=== PATIENT | female | born 1995 | race African-American/Black ===

== ENCOUNTER 2017-05-07 10:20 | Emergency (ER) | payer SELFPAY ==
[~2017-05-07] VITALS: Ht 175.3 cm; Wt 104.5 kg
[2017-05-07 10:28] VITALS: BP 122/88; TEMP 98.3
[2017-05-07] MEDS ORDERED: SE TAN PLUS PO (10:33)
[2017-05-07 12:32] LABS: BASO % 0.4 % (0.0-2.0); EOS # 0.4 (0.0-0.7); EOS % 4.9 % (0-4.0); GRAN # 5.6 (1.4-6.5); GRAN % 63.3 % (42.2-75.2); LYMPH # 2.1 (1.2-3.4); LYMPH % 23.9 % (20.0-51.0); MEAN CELL VOLUME 87 fl (80.0-95.0); MEAN CORPUSCULAR HEMOGLOBIN 29 pg (26.0-32.0); MEAN CORPUSCULAR HGB CONC 33 g/dl (33.0-37.0); MONO # 0.7 (0.1-0.6); MONO % 7.4 % (1.7-9.3); PLATELET COUNT 307 K/mm3 (130-400); RED BLOOD COUNT 4.14 M/mm3 (4.10-5.30); REDCELL DISTRIBUTION WIDTH-CV 14.7 % (11.5-14.5)
[2017-05-07 12:39] LABS: HEMATOCRIT 36.2 % (35.0-45.0)
[2017-05-07 12:46] LABS: ALBUMIN 4.4 gm/dL (3.5-5.0); BILIRUBIN,TOTAL 0.4 mg/dL (0.0-1.0); C-REACTIVE PROTEIN 0.8 mg/dL (0.0-0.9); CALCIUM 9.2 mg/dL (8.4-10.2); CREATININE, serum 0.6 mg/dL (0.52-1.25); POTASSIUM 4.3 mmol/L (3.4-5.0); TOTAL PROTEIN 8.2 gm/dL (6.4-8.2)
[2017-05-07 13:00] LABS: COLLECTION METHOD CLEAN CATCH
[2017-05-07 13:05] LABS: MUCOUS Present /lpf; PH 7 (5-8); URINE APPEARANCE Clear; URINE BACTERIA Rare /hpf; URINE BILIRUBIN Negative (NEGATIVE); URINE BLOOD Negative (NEGATIVE); URINE COLOR Yellow; URINE GLUCOSE Negative (NEGATIVE); URINE KETONE Negative (NEGATIVE); URINE LEUKOCYTE ESTERASE 2+ (NEGATIVE); URINE NITRATE Negative (NEGATIVE); URINE PROTEIN(semi-quant) Negative (NEGATIVE); URINE RBC 0-2 /hpf; URINE UROBILINOGEN Negative (NEGATIVE)
[2017-05-07] MEDS ORDERED: FLAGYL500 MG PO (15:12)
[2017-05-07 15:27] VITALS: PULSE 91
== END 2017-05-07 15:28 | disposition home or self-care (01) ==
LOC: COL.ER 10:20
PROVIDERS: Nurse Practitioner
DX: O26.891 Other specified pregnancy related conditions, first trimester (principal); R10.30 Lower abdominal pain, unspecified; Z88.6 Allergy status to analgesic agent; Z3A.12 12 weeks gestation of pregnancy

== ENCOUNTER 2017-05-20 21:11 | Emergency (ER) | payer BC ==
[~2017-05-20] VITALS: Ht 175.3 cm; Wt 104.5 kg
[~2017-05-20 21:11] MED LIST: FLAGYL500 MG PO; SE TAN PLUS PO
[2017-05-20 21:15] VITALS: BP 133/77; TEMP 99.6
[2017-05-20 21:49] LABS: COLLECTION METHOD CLEAN CATCH
[2017-05-20 21:55] LABS: PH 8 (5-8); SQUAMOUS EPITHELIAL 0-2 /hpf; URINE APPEARANCE Clear; URINE BACTERIA None Seen /hpf; URINE BILIRUBIN Negative (NEGATIVE); URINE BLOOD Negative (NEGATIVE); URINE COLOR Straw; URINE GLUCOSE Negative (NEGATIVE); URINE KETONE Negative (NEGATIVE); URINE LEUKOCYTE ESTERASE Negative (NEGATIVE); URINE NITRATE Negative (NEGATIVE); URINE PROTEIN(semi-quant) Negative (NEGATIVE); URINE RBC 0-2 /hpf; URINE UROBILINOGEN Negative (NEGATIVE)
[2017-05-20 23:37] VITALS: PULSE 87
== END 2017-05-20 23:37 | disposition home or self-care (01) ==
LOC: COL.ER 21:11
PROVIDERS: Nurse Practitioner
DX: O26.892 Other specified pregnancy related conditions, second trimester (principal); R10.2 Pelvic and perineal pain; Z3A.14 14 weeks gestation of pregnancy; Z88.6 Allergy status to analgesic agent

== ENCOUNTER 2017-05-24 09:29 | Emergency (ER) | payer BC ==
[~2017-05-24] VITALS: Ht 175.3 cm; Wt 104.5 kg
[2017-05-24 09:47] VITALS: TEMP 98.9
[2017-05-24 10:34] LABS: BASO % 0.3 % (0.0-2.0); EOS # 0.5 (0.0-0.7); EOS % 4.8 % (0-4.0); GRAN # 6.5 (1.4-6.5); GRAN % 68.6 % (42.2-75.2); LYMPH # 1.8 (1.2-3.4); LYMPH % 18.9 % (20.0-51.0); MEAN CELL VOLUME 87 fl (80.0-95.0); MEAN CORPUSCULAR HGB CONC 34 g/dl (33.0-37.0); MEAN PLATELET VOLUME 8.9 fl (7.4-10.4); MONO # 0.7 (0.1-0.6); PLATELET COUNT 279 K/mm3 (130-400); RED BLOOD COUNT 3.92 M/mm3 (4.10-5.30); REDCELL DISTRIBUTION WIDTH-CV 14.4 % (11.5-14.5)
[2017-05-24 10:36] LABS: HEMATOCRIT 34.1 % (35.0-45.0); HEMOGLOBIN 11.5 g/dl (12.0-15.0); MEAN CORPUSCULAR HEMOGLOBIN 29 pg (26.0-32.0)
[2017-05-24 12:38] VITALS: BP 134/84; PULSE 87
== END 2017-05-24 12:38 | disposition home or self-care (01) ==
LOC: COL.ER 09:29
PROVIDERS: Nurse Practitioner
DX: O26.892 Other specified pregnancy related conditions, second trimester (principal); R10.30 Lower abdominal pain, unspecified; Z88.6 Allergy status to analgesic agent; Z3A.15 15 weeks gestation of pregnancy